=== PATIENT | female | born 2000 | race Caucasian/White ===

== ENCOUNTER 2025-05-04 14:11 | Emergency (ER) | payer BC, SELFPAY ==
[2025-05-04] VITALS (8 sets, daily range): BP systolic 114–123; BP diastolic 65–84; BMI 25.9
[2025-05-04 14:32] LABS: Hematocrit 44.7 % (37.0-47.0); Hemoglobin 16.0 g/dL (12.0-16.0); Mean Corp Hgb Conc. 35.8 g/dL (33.0-37.0); Mean Corpuscular Volume 89.0 fL (81.0-99.0); Nucleated Red Blood Cells % 0 %; Platelet Count 334 10^3/uL (130-400); Red Cell Dist. Width 12.1 % (11.5-14.5)
[2025-05-04 14:46] LABS: HCG, Serum Qualitative Screen Negative
[2025-05-04 14:51] LABS: ALT (SGPT) 17 U/L (0-35); AST (SGOT) 20 U/L (14-36); Albumin 5.7 g/dl (3.5-5.0); Alkaline Phosphatase 91 U/L (38-126); Blood Urea Nitrogen 17 mg/dl (7-17); Calcium 10.9 mg/dl (8.4-10.2); Carbon Dioxide 19 mmol/L (22-30); Chloride 100 mmol/L (98-107); Estimated Creatinine Clearance 115 ml/min; Glucose 135 mg/dl (70-99); Potassium 3.9 mmol/L (3.5-5.1); Sodium 135 mmol/L (135-145); Total Protein 9.0 g/dl (6.3-8.2); eGFR > 60.00
--- NOTE | 2025-05-04 15:29 | ED.GENMED ---
History of Present Illness
<Robel Black DO - Last Filed: 05/04/25 18:55>
General
Chief Complaint: Seizure
Source: patient
Time Seen by Provider: 05/04/25 15:16
History of Present Illness
History of Present Illness:
The patient is a 24-year-old female presenting to the emergency department with non-epileptic seizure-like episodes described as occurring once daily over the past three days. The episodes resemble grand mal seizures with loss of motor control, legs
giving out, and shaking. The patient also experiences persistent headaches that have been longstanding, attributed to a known history of hydrocephalus for which she has a ventriculoperitoneal shunt. The headaches have been severe in recent days. She
describes vomiting once daily, with the last episode occurring within the past 12 hours, but she denies any diarrhea.
The patient has a prior history of emergency department visits for similar seizure activity and was previously evaluated with a computed tomography scan and an electroencephalogram which showed no epileptic activity. She has been diagnosed with
psychogenic non-epileptic seizures (PNES) and is currently not receiving anti-seizure medication. However, she is on Fluoxetine (Prozac) 15 mg daily for mood stabilization. The patient has also been experiencing nausea and potential issues related
to connective tissue disorder.
Phy Exam
<Robel Black DO - Last Filed: 05/04/25 18:55>
Physical Exam
Physical Exam:
General: Sleepy but arousable, once awake answers questions appropriately, follows commands and appears normally interactive
Vitals: unremarkable
Head: Atraumatic
Eyes: Pupils equal, EOMI
Throat: Airway intact, no exudates
Neck: Trachea midline
Lungs: Clear and equal b/l
Heart: Regular rate, no murmurs
Abd: Soft, Nontender, No pulsatile mass
Neuro: Cranial nerves intact, muscle strength equal bilaterally, cerebellar exam normal
Skin: Warm, dry, no rash
Extremities: pulses equal b/l, no edema
Course
<Robel Black, DO - Last Filed: 05/04/25 18:55>
Orders/Labs/Results
Orders:
Orders
05/04/25 14:20
Test Result ONCE
05/04/25 14:27
CMP [Comprehensive Metabolic Panel] Urgent
Complete Blood Count/With Diff Urgent
HCG, Serum Qualitative Screen Urgent
05/04/25 15:32
Diphenhydramine [Benadryl] 25 mg IV NOW STA
Metoclopramide [Reglan] 10 mg IV NOW STA
05/04/25 15:33
0.9% Sodium Chloride 500 ml [Nss] 500 ml IV BOLUS
05/04/25 17:21
Ketorolac [Toradol] 15 mg IV NOW STA
EEG [Rapid Point of Care EEG (ED/ICU ONLY)] Q1H
Indications for use:: History of Epilepsy
05/04/25 18:21
diazePAM [Valium Injection] 5 mg IV NOW STA
05/04/25 20:53
Valproate Sodium [Depacon] 500 mg 0.9% Sodium Chloride 50 ml [Nss] 50 ml IV NOW
05/04/25 21:00
Valproate Sodium [Depacon] 500 mg 0.9% Sodium Chloride 50 ml [Nss] 50 ml IV NOW
05/04/25 22:10
Ondansetron Injectable [Zofran] 4 mg IV NOW STA
Abnormal Lab Results
05/04/25
14:27
WBC 11.0 H 10^3/uL
(4.8-10.8)
MCH 31.9 H pg
(27.0-31.0)
Abs Immat Gran (auto) 0.1 H 10^3/uL
(0-0.05)
Absolute Neuts (auto) 9.4 H 10^3/uL
(1.4-6.5)
Absolute Lymphs (auto) 0.7 L 10^3/uL
(1.2-3.4)
Absolute Monos (auto) 0.7 H 10^3/uL
(0.1-0.6)
Immature Gran % 0.8 H %
(0-0.5)
Neutrophils % 85.9 H %
(42.2-75.2)
Lymphocytes % 6.5 L %
(20.5-51.1)
Carbon Dioxide 19 L mmol/L
(22-30)
Creatinine 0.5 L mg/dL
(0.6-1.0)
Glucose 135 H mg/dl
(70-99)
Calcium 10.9 H mg/dl
(8.4-10.2)
Total Protein 9.0 H g/dl
(6.3-8.2)
Albumin 5.7 H g/dl
(3.5-5.0)
05/04/25 14:27
05/04/25 14:27
Vital Signs
Initial and Last Documented VS:
Initial Vital Signs
BP
117/83
05/04/25 14:15
Last Documented Vital Signs
Temp Pulse Resp BP Pulse Ox
97.8 F 100 25 118/84 100
05/04/25 14:17 05/04/25 22:15 05/04/25 22:15 05/04/25 22:00 05/04/25 22:15
<J Carlos Pulido, DO - Last Filed: 05/05/25 23:52>
Orders/Labs/Results
Orders:
Orders
05/04/25 14:20
Test Result ONCE
05/04/25 14:27
CMP [Comprehensive Metabolic Panel] Urgent
Complete Blood Count/With Diff Urgent
HCG, Serum Qualitative Screen Urgent
05/04/25 15:32
Diphenhydramine [Benadryl] 25 mg IV NOW STA
Metoclopramide [Reglan] 10 mg IV NOW STA
05/04/25 15:33
0.9% Sodium Chloride 500 ml [Nss] 500 ml IV BOLUS
05/04/25 17:21
Ketorolac [Toradol] 15 mg IV NOW STA
EEG [Rapid Point of Care EEG (ED/ICU ONLY)] Q1H
Indications for use:: History of Epilepsy
05/04/25 18:21
diazePAM [Valium Injection] 5 mg IV NOW STA
05/04/25 20:53
Valproate Sodium [Depacon] 500 mg 0.9% Sodium Chloride 50 ml [Nss] 50 ml IV NOW
05/04/25 21:00
Valproate Sodium [Depacon] 500 mg 0.9% Sodium Chloride 50 ml [Nss] 50 ml IV NOW
05/04/25 22:10
Ondansetron Injectable [Zofran] 4 mg IV NOW STA
Abnormal Lab Results
05/04/25
14:27
WBC 11.0 H 10^3/uL
(4.8-10.8)
MCH 31.9 H pg
(27.0-31.0)
Abs Immat Gran (auto) 0.1 H 10^3/uL
(0-0.05)
Absolute Neuts (auto) 9.4 H 10^3/uL
(1.4-6.5)
Absolute Lymphs (auto) 0.7 L 10^3/uL
(1.2-3.4)
Absolute Monos (auto) 0.7 H 10^3/uL
(0.1-0.6)
Immature Gran % 0.8 H %
(0-0.5)
Neutrophils % 85.9 H %
(42.2-75.2)
Lymphocytes % 6.5 L %
(20.5-51.1)
Carbon Dioxide 19 L mmol/L
(22-30)
Creatinine 0.5 L mg/dL
(0.6-1.0)
Glucose 135 H mg/dl
(70-99)
Calcium 10.9 H mg/dl
(8.4-10.2)
Total Protein 9.0 H g/dl
(6.3-8.2)
Albumin 5.7 H g/dl
(3.5-5.0)
05/04/25 14:27
05/04/25 14:27
Vital Signs
Initial and Last Documented VS:
Initial Vital Signs
BP
117/83
05/04/25 14:15
Last Documented Vital Signs
Temp Pulse Resp BP Pulse Ox
97.8 F 100 25 118/84 100
05/04/25 14:17 05/04/25 22:15 05/04/25 22:15 05/04/25 22:00 05/04/25 22:15
<Robel Black DO - Last Filed: 05/04/25 18:55>
MDM/Problems Addressed
Differential Diagnosis Includes:
The Differential Diagnosis includes, in no particular order and is not limited to:
- Psychogenic Non-Epileptic Seizures
- Migraine headaches
- Intracranial pressure changes
- Medication side effects
- Anxiety-related disorders
- Pseudo-seizures
- Functional neurological disorder
- Nausea and vomiting of unspecified cause
- Substance-induced symptoms (marijuana use)
- Connective tissue disorder-related symptoms
MDM/Problems Addressed:
Patient presents with headache. Patient's had a couple visits to [facility] for headache. He received CT report from her visit troponin which shows no acute abnormality. Patient had a 5-day stay at the [place] epilepsy monitoring unit. She had
events there but seizure activity on EEG. Patient treated with Reglan and Compazine here for headache without much improvement.
Toradol did not improvement. Valium because I believe anxiety is playing a significant component in her presentation.
<Robel Black DO - Last Filed: 05/04/25 18:55>
*Pulse Oximetry
SaO2: 98
Oxygen Mode of Delivery: Room air
<J Carlos Pulido, DO - Last Filed: 05/05/25 23:52>
*Pulse Oximetry
Patient hypoxic: no
*Critical Care Note
Total Time (30-74mins, 75-104mins- exclusive of procedures): 30 minutes
<J Carlos Pulido, DO - Last Filed: 05/05/25 23:52>
Update Note
Update Note:
2034 patient reassessed. Afebrile no focal motor exam findings but headache persist. Consult placed to [place] neurology
2054 Case discussed with [place] [facility] who agrees with trial of valproic acid IV followed by 500 mg twice daily for 7 days. Patient states this actually has helped in the past. [place] [facility] will follow-up next week
2207 feeling much better headache improved. Does report mild dizziness. Neurology agrees to follow the patient as an outpatient and will continue 500 twice daily of Depakote
ED Attending Note
<Robel Black, - Last Filed: 05/04/25 18:55>
-
Portions of this chart may have been created with voice recognition software.� Occasional wrong word or��sound alike� substitutions may have occurred due to the inherent limitations of voice recognition software.
Discharge Plan
Departure
Patient Disposition: Home (Routine Discharge)
Date of Disposition: 05/04/25
Time of Disposition: 22:08
Patient with high blood pressure during this ER visit?: No
Condition: Fair
Discharge Problem:
Migraine
Instructions: Migraine in adults
Prescriptions:
New
diazepam [Valium] 5 mg tablet
5 mg PO TID PRN (Reason: anxiety) Qty: 14 0RF
divalproex [Depakote] 500 mg tablet,delayed release (DR/EC)
500 mg PO BID Qty: 14 0RF
No Action
BuSpar
1 tab PO . DIRECTED
clonidine
1 tab PO . DIRECTED
mirtazapine
1 tab PO .ASDIRECTED
naloxone
1 tab PO . DIRECTED
Referrals:
NONE,* [Family Provider, Internal Medicine]
Activity Restrictions/Additional Instructions:
Please see your neurologist in the next 2 to 3 days for follow-up and reevaluation. Return immediately for fevers, worsening pain, intractable vomiting or any other concerns. Drink plenty of fluids.
Interventions
Interventions:
*Risk Screen - Suicide Last Done: 05/04/25 14:19
*General Assessment Last Done: 05/04/25 14:19
*Neglect/Abuse Screening Last Done: 05/04/25 14:19
*ED- Fall Risk Assessment Last Done: 05/04/25 14:40
*ED COVID-19 Vaccine History Last Done: 05/04/25 14:40
*Nursing Disposition Last Done: 05/04/25 22:54
ED- Cardiac Assessment Last Done: 05/04/25 14:20
ED- Neurological Assessment Last Done: 05/04/25 14:20
ED- Pulmonary Assessment Last Done: 05/04/25 14:20
Discharge Date and Time
Discharge Date/Time: 05/04/25 22:55
Print Language: GUINEAN
[2025-05-04] MEDS: NSS 500 IV (15:50)
[2025-05-04] MEDS: BENADRYL 25 MG IV (15:51)
[2025-05-04] MEDS: REGLAN 10 MG IV (15:51)
[2025-05-04] MEDS: TORADOL 15 MG IV (17:52)
[2025-05-04] MEDS: VALIUM INJECTION 5 MG IV (18:50)
[2025-05-04] MEDS: DEPACON 55 MG IV (21:19)
[2025-05-04] MEDS: ZOFRAN 4 MG IV (22:13)
--- NOTE | 2025-05-06 12:24 | EEG.RPT ---
Electroencephalogram Report
Recording
Date of EE05/04/25
Type of EEG: Routine and Portable
Length of EEG recordin mins
Patient Status: Emergency Room
Recording Conditions: Awake
Hyperventilation Performed: No
Photic Stimulation Performed: No
Report
Clinical Background:�24 year old woman with seizure
Introduction: A emergent [facility] EEG was done using International 10-20 electrode placement protocol.
Background: In the most alert state, the PDR is 9 Hz in frequency with normal amplitude. There is spontaneous variability and reactivity.�
Sleep: No sleep is seen.�
Focal/epileptiform: There were no focal or epileptiform discharges. No clinical or electrographic seizures occurred during this recording.
Photic stimulation: resulted in normal driving response. There was no photo myogenic or photoparoxysmal response.�
Impression: Normal EEG
== END 2025-05-04 22:55 | disposition home or self-care (01) ==
LOC: EMR 14:11
PROVIDERS: EMERGENCY PHYSICIAN Emergency Medicine
DX: G43.909 Migraine, unspecified, not intractable, without status migrainosus (principal); R42 Dizziness and giddiness; R11.2 Nausea with vomiting, unspecified; G91.9 Hydrocephalus, unspecified; F44.5 Conversion disorder with seizures or convulsions; F41.9 Anxiety disorder, unspecified; Z98.2 Presence of cerebrospinal fluid drainage device; Z79.899 Other long term (current) drug therapy
CPT/HCPCS: 99291; 96365; 96375 ×5; 80053; 84703; 85025

== ENCOUNTER 2025-05-05 19:30 | Emergency (ER) | payer BC, SELFPAY ==
[2025-05-05] VITALS (9 sets, daily range): BP systolic 112–190; BP diastolic 61–112; BMI 23.8
[2025-05-05 19:42] LABS: Glucose - Point of Care 121 mg/dl (70-99)
[2025-05-05 20:09] LABS: Hematocrit 45.8 % (37.0-47.0); Hemoglobin 16.6 g/dL (12.0-16.0); Mean Corp Hgb Conc. 36.2 g/dL (33.0-37.0); Mean Corpuscular Volume 88.6 fL (81.0-99.0); Nucleated Red Blood Cells % 0 %; Platelet Count 397 10^3/uL (130-400); Red Cell Dist. Width 12.1 % (11.5-14.5)
[2025-05-05 20:31] LABS: Depakane 42.1 ug/ml (50.0-120.0)
[2025-05-05 20:31] LABS: ALT (SGPT) 15 U/L (0-35); AST (SGOT) 18 U/L (14-36); Albumin 5.2 g/dl (3.5-5.0); Alkaline Phosphatase 96 U/L (38-126); Blood Urea Nitrogen 12 mg/dl (7-17); Calcium 10.6 mg/dl (8.4-10.2); Carbon Dioxide 20 mmol/L (22-30); Chloride 104 mmol/L (98-107); Estimated Creatinine Clearance 115 ml/min; Glucose 137 mg/dl (70-99); Potassium 3.7 mmol/L (3.5-5.1); Sodium 135 mmol/L (135-145); Total Protein 8.5 g/dl (6.3-8.2); eGFR > 60.00
[2025-05-05] MEDS: NSS 1000 IV (20:58)
[2025-05-05] MEDS: OFIRMEV 100 IV (20:58)
--- NOTE | 2025-05-05 22:07 | PTCARENOTE ---
Family came out of room to get Nurse and stated 'she's having another one'. RN in room to check pt. HR on Tele ST in low 100's. Pt's body is stiff with arms and legs contracted, head arched backwards. Pt's VSS during this event. This event
lasted about 1 minute. Pt remained unresponsive to verbal and painful stimuli for 2 minutes after event. Pt then able to state prior to the event she feels pain behind her eyes. made aware. Will continue to monitor.
--- NOTE | 2025-05-05 22:42 | ED.GENMED ---
History of Present Illness
General
Chief Complaint: Seizure
Source: patient and family
Time Seen by Provider: 05/05/25 20:07
History of Present Illness
History of Present Illness:
Note:
CHIEF COMPLAINT(S)
Seizures, severe neck pain, and headaches.
HISTORY OF PRESENT ILLNESS
The patient presents with a history of worsening seizures and severe neck pain. The episodes of seizures have been occurring throughout the day, with the first seizure around 11 or 12 PM and followed by two more [id number] after 5 PM. Another
seizure was noted later, but the exact timing is unclear. These episodes appear to be accompanied by severe neck pain, which started approximately six to seven days ago. The patient also reports experiencing headaches which differ from past
migraines, describing the current headache as severe but distinct in nature. Yesterday, the headache pain level was reported as six out of ten and slightly better today, potentially at a five. The pain is mainly in the neck, which was rated as an
eight earlier. Notably, the patient was diagnosed with psychogenic pseudo-seizures; however, these current episodes seem to correlate with physical pain rather than solely psychological factors. There is no report of fever, but sweating was
observed, suggesting increased distress.
EXTERNAL RECORDS REVIEWED
The patient has had a couple of visits to an outside hospital, specifically two at [facility]. Previous medical records from these visits were considered in discussing the patients ongoing symptoms.
CHRONIC MEDICAL CONDITIONS SIGNIFICANTLY AFFECTING CARE
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
SOCIAL HISTORY
The patient is currently on testosterone gel, applied as one pump daily, which has been ongoing for about seven months. This treatment purportedly lessened the frequency of migraines.
MEDICATIONS
- Meloxicam
- An antibiotic for a urinary tract infection starting with 'C' (uncertain which specific antibiotic)
- Metazepine and ubrogepant as needed for migraine management
- Monthly injection of a medication referred to as 'Ajovy,' likely for migraine prevention
- Daily testosterone gel, one pump
PHYSICAL EXAM
General: Alert, no acute distress.
Skin: Warm, dry.
Head: Normocephalic, atraumatic.
Neck: Supple, trachea midline. Reports of severe pain, improves slightly on lifting the head but persists primarily when lying down.
Eye, Ears, nose, and mouth: Oral mucosa moist.
Cardiovascular: Normal peripheral perfusion, No edema.
Respiratory: Respirations are non-labored.
Gastrointestinal: Abdomen nondistended
Back: Normal range of motion, Normal alignment.
Musculoskeletal: Normal ROM, normal strength.
Neurological: Alert and oriented to person, place, time, and situation, no focal neurological deficit observed.
Psychiatric: Cooperative, appropriate mood & affect.
PROBLEM LIST
- Acute: Worsening seizures, severe neck pain, atypical headaches
- Chronic: Kiley-Danlos Syndrome
PLAN
Consideration for admission to a facility capable of managing the patients shunt and seizures. Evaluation of bed availability for potential transfer, ensuring treatment by appropriate specialists. Review and possibly repeat MRI imaging to examine
current brain and central nervous system status. Comparison of labs from previous records to evaluate any changes, particularly focusing on white blood cell counts indicative of infection or other inflammatory processes. Coordination with neurology
specialists who have been briefed on the patient�s condition.
DIFFERENTIAL DIAGNOSIS
The Differential Diagnosis includes, in no particular order and is not limited to:
1. Epileptic seizures
2. Psychogenic non-epileptic seizures (PNES)
3. Cervicogenic headache
4. Migraine
5. Meningitis
6. Intracranial hypertension
7. Shunt malfunction or infection
8. Cervical radiculopathy
9. Anxiety disorder
10. Cluster headache
CARE-UPDATE
05/05/25 - 22:26
Consultation with Neurology at the [facility] confirms no suspicion of meningitis, with no additional recommendations provided. It was noted that the patient recently experienced a similar event during a stay at the epilepsy
monitoring unit, where no epileptiform changes were observed on EEG. Neurology considers the possibility of psychogenic seizures as the underlying cause.
Disposition:
SUMMARY OF ENCOUNTER
The patient presented to the emergency department with worsening seizures, severe neck pain, and atypical headaches. The seizure episodes occur multiple times throughout the day, often accompanied by severe neck pain and distinct headaches. At the
emergency department, reassessment showed persistent headache pain, though vital signs remained normal. The patients mother expressed concern about taking the patient home and requested a transfer to the [facility] for further
management of seizures. No evidence of meningitis. Afebrile. No meningeal findings. Did recently have a CT scan of the head.
DISPOSITION
The patients mother requested transfer to [facility] for further management.
MANAGEMENT OF THE PATIENTS CARE WAS DISCUSSED WITH
Neurology was consulted for further management and transfer arrangements to the [facility] due to concerns about seizures and pain management.
PLAN
Consideration for transfer to the [facility] to ensure specialized management of the patients seizures and associated symptoms. Coordination with neurology specialists for appropriate continuity of care.
MEDICAL DECISION MAKING
-Complexity of Data Reviewed: Chronic conditions affecting care include Kiley-Danlos Syndrome. Differential diagnosis includes:
1. Epileptic seizures
2. Psychogenic non-epileptic seizures (PNES)
3. Cervicogenic headache
4. Migraine
5. Meningitis
6. Intracranial hypertension
7. Shunt malfunction or infection
8. Cervical radiculopathy
9. Anxiety disorder
10. Cluster headache
-Data:
Category 2
Clinical information was discussed with the patients mother, who is advocating for further care at a specialized facility.
-Risk:
Consideration of Admission/Observation: The decision for admission or transfer was influenced by the complexity and risk of the patients seizures and persistent headaches, which require specialized care. Transfer arrangements to the [facility]
[place] were considered appropriate to manage the patients condition.
DIAGNOSIS
- Seizures, unspecified, R56.9
- Severe neck pain, M54.2
- Headache, type unspecified, R51.9
Phy Exam
Physical Exam
Physical Exam:
.
Course
Orders/Labs/Results
Orders:
Orders
05/05/25 19:55
EKG [Electrocardiogram (*1)] Urgent
Reason for Study: Other
Other Reason for Exam: seizure
05/05/25 19:56
EKG- Treatment ONCE
05/05/25 19:59
Complete Blood Count/With Diff Urgent
Comprehensive Metabolic Panel Urgent
05/05/25 20:00
Depakane Urgent
05/05/25 20:55
0.9% Sodium Chloride 1000 ml [Nss] 1,000 ml IV BOLUS
Acetaminophen 1000MG/100Ml [Ofirmev] 1,000 mg in 100 ml IV ONCE
Acetaminophen IV Indication:: ED Narcotic Naive Pt-ONCE
Abnormal Lab Results
05/05/25 05/05/25 05/05/25
19:41 19:59 20:00
WBC 10.9 H 10^3/uL
(4.8-10.8)
Hgb 16.6 H g/dL
(12.0-16.0)
MCH 32.1 H pg
(27.0-31.0)
Abs Immat Gran (auto) 0.1 H 10^3/uL
(0-0.05)
Absolute Neuts (auto) 8.1 H 10^3/uL
(1.4-6.5)
Absolute Monos (auto) 1.1 H 10^3/uL
(0.1-0.6)
Lymphocytes % 14.0 L %
(20.5-51.1)
Monocytes % 10.3 H %
(1.7-9.3)
Carbon Dioxide 20 L mmol/L
(22-30)
Creatinine 0.5 L mg/dL
(0.6-1.0)
Glucose 137 H mg/dl
(70-99)
Calcium 10.6 H mg/dl
(8.4-10.2)
Total Protein 8.5 H g/dl
(6.3-8.2)
Albumin 5.2 H g/dl
(3.5-5.0)
Valproic Acid 42.1 L ug/ml
(50.0-120.0)
POC Glucose 121 H mg/dl
(70-99)
05/05/25 19:59
05/05/25 19:59
Vital Signs
Initial and Last Documented VS:
Initial Vital Signs
Temp Pulse Resp BP Pulse Ox
97.9 F 92 18 113/79 100
05/05/25 19:38 05/05/25 19:38 05/05/25 19:38 05/05/25 19:38 05/05/25 19:38
Last Documented Vital Signs
Temp Pulse Resp BP Pulse Ox
98.1 F 58 20 112/71 98
05/05/25 23:00 05/05/25 23:00 05/05/25 23:00 05/05/25 23:00 05/05/25 22:43
*Pulse Oximetry
SaO2: 98
Oxygen Mode of Delivery: Room air
Patient hypoxic: no
*Critical Care Note
Total Time (30-74mins, 75-104mins- exclusive of procedures): 30 minutes
ED Attending Note
-
Portions of this chart may have been created with voice recognition software.� Occasional wrong word or��sound alike� substitutions may have occurred due to the inherent limitations of voice recognition software.
Discharge Plan
Departure
Patient Disposition: Acute Care Hospital
Date of Disposition: 05/05/25
Time of Disposition: 22:43
Discharge Problem:
Nonepileptic attack disorder, Acute intractable headache
Prescriptions:
No Action
BuSpar
1 tab PO . DIRECTED
clonidine
1 tab PO . DIRECTED
mirtazapine
1 tab PO .ASDIRECTED
naloxone
1 tab PO . DIRECTED
diazepam [Valium] 5 mg tablet
5 mg PO TID PRN (Reason: anxiety) Qty: 14 0RF
divalproex [Depakote] 500 mg tablet,delayed release (DR/EC)
500 mg PO BID Qty: 14 0RF
Referrals:
UNKNOWN - PT DOES,NOT KNOW [Family Provider]
Hospital Transfer
Other hospital: [facility]
I certify that the patient requires transfer: Yes
Discussed case with accepting physician: Thor
Reason for transfer: higher level of care
Interventions
Interventions:
*Risk Screen - Suicide Last Done: 05/05/25 19:38
*General Assessment Last Done: 05/05/25 19:38
*Neglect/Abuse Screening Last Done: 05/05/25 19:38
*ED- Fall Risk Assessment Last Done: 05/05/25 20:00
*ED COVID-19 Vaccine History Last Done: 05/05/25 20:00
ED- Cardiac Assessment Last Done: 05/05/25 20:01
ED- Neurological Assessment Last Done: 05/05/25 20:01
ED- Pulmonary Assessment Last Done: 05/05/25 20:01
Discharge Date and Time
Print Language: VIETNAMESE
[2025-05-06] VITALS: BP 119/86
[2025-05-06] MEDS: DEPACON 55 MG IV (00:30)
[2025-05-06] MEDS: TORADOL 15 MG IV (00:50)
[2025-05-06 01:02] VITALS: BP 174/70
[2025-05-06] MEDS: BENADRYL 25 MG IV (01:08)
[2025-05-06] MEDS: ATIVAN 1 MG IV (01:08)
--- NOTE | 2025-05-06 01:12 | EDRN ---
At 01:05 this RN was given report to the transport staff when the patient started to have a seizure. Dr. Peters called to bedside. The patient first became bradycardic at 57. The patient was tense and her right arm was above her head. The patient then
started to have shaking and her upper arms became tense. The patient was diaphoretic and red from her waist to her face. The patients legs remained pale. The patient became tachycardiac at 145. The Patients BP was 174/70. The patient had snoring
breathing. The patient did not respond to painful stimuli. The patient was witnessed for 5 mins and the patient started to wake up. The patient was given benadryl and ativan as noted in MAR. The patient stated 'I just want to sleep' when she was
responsive.
[2025-05-06 01:30] VITALS: BP 126/84
--- NOTE | 2025-05-06 01:39 | ED.ADDNOTE ---
ED Addendum
ED Addendum
ED Addendum Note:
I was called urgently to the bedside of patient who suddenly became unresponsive, initially bradycardic without hypotension, profusely diaphoretic, moderate global erythema, sonorous respirations.
Brief sinus bradycardia for perhaps 30 seconds then resolved and then transition to sinus tachycardia. Due to concern for potential allergic reaction patient given IV Benadryl 25 mg. Patient remained unresponsive, sonorous respirations and then
developed tonic like stiffness of bilateral upper extremities, accompanied with unresponsiveness, sinus tachycardia, moderate hypertension. Significant concern for seizure activity thus patient given 1 mg of IV Ativan. Seizure activity lasted
perhaps 1 minute and resolved. Patient is now awake, mildly drowsy but oriented x 3. No tongue biting, no respiratory distress, she was not incontinent of bladder nor bowel.
EMS crew have arrived for transport but this is a BLS crew. Patient will require ALS for transport to [facility].
Patient follows with specialist at [facility], all of which know her well.
Will cancel BLS transport team and arrange for ALS transport team.
Will continue to monitor in the ED and will place [facility] to assess for recurrent seizure.
[2025-05-06 02:00] VITALS: BP 123/78
[2025-05-06] MEDS: VALIUM INJECTION 5 MG IV (02:16)
[2025-05-06 03:00] VITALS: BP 123/76
--- NOTE | 2025-05-06 03:34 | EDRN ---
Please note that the patients heart rate ranges from the high 50's up to 130's. The patient's pulse ox decreases to 85 % on room air when the patient falls asleep. The patient is not snoring at the time but does wake up within 2 mins of time. The
patient was placed on O2 2L N/C .
[2025-05-06 04:00] VITALS: BP 111/68
--- NOTE | 2025-05-06 07:28 | W.RAPID.EEG ---
Rapid EEG
-
Procedure Date: 05/06/25
Results:
Point of Care EEG Procedure Note
Patient name: DARYL MADDEN
Medical ID: [id number]
Date of : 2000 Age: 24
IMPRESSIONS:
No evidence of status epilepticus
Recording 1 Duration: 2025-05-06 01:45:44 - 2025-05-06 02:46:55
Recording Total Time: 01:01:11 (61 minutes)
Ordering Physician: FAN
Recording Technique: This EEG was obtained using a 10 lead, 8 channel circumferential rapid EEG with no parasagittal coverage.
Performed with Elisa Cooley Status Epilepticus Monitor, ICD-10 [id number]
Clinical History: DARYL MADDEN is a 24 year old Prior Seizure patient undergoing EEG to screen for non-convulsive status epilepticus.
Primary Indication: Prior Seizure
Location: ED
Report prepared by: Bert Lowe
Report generated on: May 06, 2025 7:29 AM UT-4
== END 2025-05-06 04:50 | disposition short-term general hospital (02) ==
LOC: EMR 19:30
PROVIDERS: Emergency Medicine; EMERGENCY PHYSICIAN Emergency Medicine
DX: F44.5 Conversion disorder with seizures or convulsions (principal); R51.9 Headache, unspecified; Q79.60 Ehlers-Danlos syndrome, unspecified; Z79.890 Hormone replacement therapy
CPT/HCPCS: 99283; 96365; 96375; 80053; 80164; 82962; 85025; 93005